=== PATIENT | male | born 1935 | race Native Hawaiian/Other Pacific Islander ===

== ENCOUNTER 2018-05-05 07:51 | Outpatient (CLI) | payer MEDICARE | END 2018-05-05 07:52 | disposition home or self-care (01) | LOC: C.LAB 07:51 | DX: I10 Essential (primary) hypertension (principal); E11.65 Type 2 diabetes mellitus with hyperglycemia; E78.2 Mixed hyperlipidemia; N40.1 Benign prostatic hyperplasia with lower urinary tract symptoms ==

== ENCOUNTER 2018-08-18 08:06 | Outpatient (CLI) | payer MEDICARE | END 2018-08-18 08:07 | disposition home or self-care (01) | LOC: C.LAB 08:06 | DX: I10 Essential (primary) hypertension (principal); E78.2 Mixed hyperlipidemia; E11.9 Type 2 diabetes mellitus without complications; I25.10 Atherosclerotic heart disease of native coronary artery without angina pectoris ==